=== PATIENT | female | born 1935 ===

== ENCOUNTER 2016-03-11 14:15 | Inpatient (IN) | payer MEDICARE, OTHER ==
[~2016-03-11] VITALS: Ht 167.6 cm; Wt 73.7 kg
--- NOTE | ~2016-03-11 | DS ---
PATIENT'S NAME: MANJULA BRADLEY [facility] AGE: 80 Y [address] ROOM: [id number] [place], [place] [address] LOCATION: GPCU ADMIT DATE: 03/11/2016 Discharge Summary DISCHARGE DATE: 03/13/2016 FAMILY PHYSICIAN: Erik Mcmahon MD ATTENDING PHYSICIAN: Shmuel Adhikari PRINCIPAL DIAGNOSES: 1. Paroxysmal atrial fibrillation. 2. Hypertension. 3. History of coronary artery disease. 4. History of transient ischemic attack. HOSPITAL COURSE: An 80-year-old lady with a past medical history of paroxysmal atrial fibrillation, who was on sotalol in the past, presented to the emergency department with sensation of palpitations, which have been going on for over 1 week. She was found to be in atrial flutter with rapid ventricular rate. She was started on Cardizem drip for the rate control. She was started on IV amiodarone in order to achieve chemical cardioversion, which did happen in this hospitalization. Cardiology was consulted. Rest of the hospitalization was unremarkable. DISCHARGE MEDICATIONS: Include, 1. Ramipril 10 mg p.o. twice daily. 2. Amiodarone 200 mg p.o. twice daily. 3. Aspirin 81 mg every day. 4. Vitamin D3, 1000 units p.o. every day. 5. Levothyroxine 50 mcg every day. 6. Claritin 10 mg p.o. every day p.r.n. 7. [place]-3 fatty acids 1000 mg p.o. twice daily. 8. Rivaroxaban 15 mg p.o. every day. 9. Metoprolol tartrate 25 mg daily at nighttime. 10. Simvastatin 40 mg p.o. at nighttime. 11. Tylenol 100 mg p.o. 3 times daily p.r.n. 12. Ultram 50 mg p.o. 4 times daily p.r.n. for pain. 13. Famotidine 20 mg p.o. every day. New medications: Amiodarone 200 mg p.o. twice daily and metoprolol tartrate 25 mg p.o. at bedtime. DISCHARGE INSTRUCTIONS: Low-sodium diet. Activity as tolerated. Follow up with Dr. Cortez in 2 weeks. On discharge, all of her lab work, hemodynamics, status post stable. I spent 35 minutes in discharge planning of this patient. PATIENT'S NAME: MANJULA BRADLEY [facility] AGE: 80 Y [address] ROOM: [place] [address] [facility] ADMIT DATE: 03/11/2016 Discharge Summary DISCHARGE DATE: 03/13/2016 FAMILY PHYSICIAN: Erik Mcmahon MD ATTENDING PHYSICIAN: Shmuel Adhikari MD MERLIN BAR/fidel /[id number] d: 03/14/16 0335 t: 03/15/16 1439, DISCHARGE SUMMARY
--- NOTE | ~2016-03-11 | ER ---
PATIENT'S NAME: MANJULA BRADLEY [facility] AGE: 80 Y [address] ROOM: [place] [address] LOCATION: GPCU ADMIT DATE: 03/11/2016 ER/Outpatient Report DISCHARGE DATE: FAMILY PHYSICIAN: Erik Mcmahon MD ATTENDING PHYSICIAN: HONORIO SR Time of Arrival: 1415 hours. Time of Evaluation: 1415 hours. CHIEF COMPLAINT: Atrial fibrillation. HISTORY OF PRESENT ILLNESS: The patient is an 80-year-old female who presents to the emergency department today with a chief complaint of atrial fibrillation. She reports she has a history of atrial fibrillation in the past. She does take Xarelto for this. She reports she just does not feel well overall. She did present to Dr. Cortez's office and saw Emma, the nurse. An EKG was performed and recommendation to come to the Emergency Department for further evaluation, and was treated. The patient noted an initial increase in her pulse rate about 5 days ago. It got a little bit better and then it just got worse today. She has had a GI bug with some diarrhea recently, has some generalized aches. She denies any fevers, does report some chills. Denies any chest pain. She has some mild shortness of breath. No nausea or vomiting. No diarrhea or constipation. Does report some diarrhea 2 times in the past 24 hours. PAST MEDICAL HISTORY: Coronary artery disease status post TIA, dyslipidemia, hypertension, mitral valve prolapse, atrial fibrillation, on long-term anticoagulation, multiple joint stiffness, gastroesophageal reflux disease, hypothyroidism, and prolapsed uterus. PAST SURGICAL HISTORY: Lap candice, appendectomy, right foot, bilateral cataracts, tumor from the back, bilateral catheter removal, left VIBHA, and PTCA with stents. FAMILY HISTORY: Heart disease and CVA. SOCIAL HISTORY: The patient has 20-pack year smoking history, quit in . Denies any alcohol or illicit drug use. ALLERGIES: PENICILLIN AND AUGMENTIN. MEDICATIONS: PATIENT'S NAME: MANJULA BRADLEY [facility] AGE: 80 Y [address] ROOM: [place] [address] LOCATION: GPCU ADMIT DATE: 03/11/2016 ER/Outpatient Report DISCHARGE DATE: FAMILY PHYSICIAN: Erik Mcmahon MD ATTENDING PHYSICIAN: HONORIO SR Please see list. MILL RECORDER: Abdelrahman Cortez MD REVIEW OF SYSTEMS: All systems are reviewed by myself and are negative with the exception of those discussed in HPI and past medical history. PHYSICAL EXAMINATION: VITAL SIGNS: Weight 73.7 kg, blood pressure 171/90, pulse 152, respiratory rate 20, temperature 97.3, and oxygen saturation 98% on room air. GENERAL: The patient is an 80-year-old female who appears younger than stated age in no acute distress. HEENT: Normocephalic and atraumatic. Pupils are equal, round, reactive to light and accommodation. Extraocular muscles appear intact. NECK: Supple. There is no nuchal rigidity. No JVD. CARDIOVASCULAR: Irregularly irregular. Tachycardic. LUNGS: Clear to auscultation bilaterally. No wheezes, rales, or rhonchi. ABDOMEN: Soft, nontender, and nondistended. No rebound, rigidity, or guarding. MUSCULOSKELETAL: The patient moves all 4 extremities. SKIN: Warm and dry. There are no rashes or lesions noted. LABORATORY DATA AND X-RAYS: EKG is obtained. It does show atrial fib/flutter, RVR rate of 153, normal axis. QRS of 129, otherwise normal intervals. No ST elevation, no significant change except for atrial fibrillation on 08/18/2015. CBC is normal. CMP is normal except for potassium of 3.5. LFTs normal. Magnesium is normal. Free T4 is 1.3. TSH is 0.532. Electrolytes are normal. Cardiac enzymes are normal. LABORATORY DATA: One-view chest x-ray was obtained, is interpreted by myself shows no cardiopulmonary process. IMPRESSION: 1. Atrial fibrillation with rapid ventricular response. 2. Initial visit. EMERGENCY DEPARTMENT COURSE: The patient was brought back to the examination room. Seen and evaluated by myself. An IV is established. Laboratory analysis and imaging were obtained as described above. The patient was given 15 mg of Cardizem, started on 5 mg/hour Cardizem drip. This does improve her rate. She is obviously PATIENT'S NAME: MANJULA BRADLEY [facility] AGE: 80 Y [address] ROOM: [place] [address] LOCATION: [facility] ADMIT DATE: 03/11/2016 ER/Outpatient Report DISCHARGE DATE: FAMILY PHYSICIAN: Erik Mcmahon MD ATTENDING PHYSICIAN: HONORIO SR irregular on the contracting support specialist. However, the patient's rate does in fact increase to back to the 148-150 range. She was then given another 15 mg of Cardizem with improvement of her heart rate right around 90s-110s. I discussed the results with the patient. I have contacted Dr. Cortez, the patient's cheese cutter. He does recommend admission to the hospital for further evaluation, treatment, and management with request for initial Hospitalist Service. The patient is agreeable with the plan. I have contacted Dr. Sr with the Hospitalist Service. He does agree to accept the patient for further evaluation, treatment, and management. The patient's heart rate is 90s-100s once again. DISPOSITION: The patient is admitted to the care of the Hospitalist Service in consultation with Dr. Cortez, Cardiology, in stable condition. DO JOHNY QUIROGA/modl /[id number] d: 03/11/162128 t: 03/12/16 0740, OUTPATIENT REPORT
--- NOTE | ~2016-03-11 | HP ---
PATIENT'S NAME: MANJULA BRADLEY [facility] AGE: 80 Y [address] ROOM: [place] [address] [facility] ADMIT DATE: 03/11/2016 History & Physical DISCHARGE DATE: FAMILY PHYSICIAN: Erik Mcmahon MD ATTENDING PHYSICIAN: HONORIO SR DATE OF SERVICE: CHIEF COMPLAINT: Palpitation. HISTORY OF PRESENT ILLNESS: An 80-year-old lady with a past medical history of coronary artery disease with stenting done back in 2007, history of atrial flutter/atrial fibrillation, was on sotalol in the past, presented to the emergency department today with sensation of palpitations, which have been going on for over a week. Initially, she thought that she had flu and that was the reason, but it became worse today and she presented to the emergency department. She denied any chest pain, any chest tightness, any chest pressure, any shortness of breath, or any palpitations. She did endorse having headache and dizziness. She denied having any urinary symptoms, any constipation, any diarrhea, any dysuria, any orthopnea, PND, or leg swelling. REVIEW OF SYSTEMS: All other systems reviewed and were negative except what is mentioned in the HPI. PAST MEDICAL HISTORY: 1. History of coronary artery disease, status post stenting. 2. Atrial flutter with controlled ventricular rate, on sotalol in the past. 3. Hypertension. 4. History of TIA. 5. Arthritis. MEDICATIONS: Please see MAR. ALLERGIES: THE PATIENT IS ALLERGIC TO PENICILLIN AND ERYTHROMYCIN. SOCIAL HISTORY: The patient quit smoking in 1989. She smoked 1 pack per day for 20 years. Occasional alcohol use. FAMILY HISTORY: Strongly positive for coronary artery disease in mother and all her sisters. There is no history of cancer running in the family. PATIENT'S NAME: MANJULA BRADLEY [facility] AGE: 80 Y [address] ROOM: [address] [address] LOCATION: GPCU ADMIT DATE: 03/11/2016 History & Physical DISCHARGE DATE: FAMILY PHYSICIAN: Erik Mcmahon MD ATTENDING PHYSICIAN: HONORIO SR PHYSICAL EXAMINATION: VITAL SIGNS: Blood pressure 145/67, heart rate in the 120s, respiratory rate 16, and afebrile. GENERAL: No acute distress. Alert, oriented x3. HEENT: Head: Atraumatic, normocephalic. Eyes: Nonicteric. No pallor. Oropharynx, moist mucous membranes. NECK: No thyromegaly or lymphadenopathy. CARDIOVASCULAR: Irregular. S1, S2. No murmur or gallops. LUNGS: Clear to auscultation bilaterally. ABDOMEN: Soft, nontender, nondistended. Bowel sounds are present. EXTREMITIES: No clubbing, cyanosis, or edema. PSYCH: Normal affect, mood, and speech. MUSCULOSKELETAL: Arthritic changes noted. SKIN: No bruises or blemishes. LABORATORY DATA: EKG done in the emergency department showed A. flutter with RVR. Chest x-ray was unremarkable for any acute intrathoracic changes. Other lab work including TSH, CBC, and a BMP was unremarkable. Potassium was on the lower side with a value of 3.6, which will be replaced tonight. ASSESSMENT AND PLAN: 1. Atrial flutter with rapid ventricular response. 2. History of coronary artery disease. 3. Hypertension. 4. Arthritis. We are going to admit this patient to inpatient. She is going to be started on Cardizem drip for rate control at this point. Cardiology has been consulted. She will be started on amiodarone drip. She is already on Xarelto and therapeutically anticoagulated. We will observe her overnight and see if she reverse back to normal sinus rhythm. Further decision for cardioversion will be based on her hospital course. She had a DVT prophylaxis with therapeutic dose of Xarelto already. We will follow this patient. She is full code. MD MERLIN BAR/fidel PATIENT'S NAME: MANJULA BRADLEY [facility] AGE: 80 Y [address] ROOM: [id number] [place] [id number] LOC[facility]: [facility] ADMIT DATE: 03/11/2016 History & Physical DISCHARGE DATE: FAMILY PHYSICIAN: Erik Mcmahon MD ATTENDING PHYSICIAN: HONORIO SR /[id number] D: [id number] T: [id number] HISTORY & PHYSICAL
--- NOTE | ~2016-03-11 | CON ---
PATIENT'S NAME: MANJULA BRADLEY [facility] AGE: 80 Y [address] ROOM: [place] [address] LOCATION: [facility] ADMIT DATE: 03/11/2016 Consultation DISCHARGE DATE: FAMILY PHYSICIAN: Erik Mcmahon MD ATTENDING PHYSICIAN: HONORIO SR REFERRING PHYSICIAN: Abdelrahman Kraft MD REASON FOR ADMISSION: Atrial fibrillation with rapid ventricular response. HISTORY OF PRESENT ILLNESS: This is an 80-year-old female, well known to Dr. Kraft, with a history of paroxysmal atrial fibrillation. She reports that she has had the flu and diarrhea for the past week or so and has noticed that her heart rate has been a little bit faster. She thought it was mostly related to the flu until she started getting better and then noticed that her heart rate remained tachycardic, so she presented to the clinic today and had an EKG showing atrial fibrillation with rates in the 170s. She states that she had a little bit of shortness of breath with the tachycardia, and the first day that she was feeling achy, she had some shoulder discomfort, but has not had anything since about 5 days ago. She denies orthopnea or PND. She denies shortness of breath now. She denies exertional chest pain. She does complain of some lightheadedness, but has not had any presyncope or syncopal episodes. PAST MEDICAL HISTORY: 1. Coronary artery disease, post PTCI and stent to LAD and OM as well as LCX on 02/04/2009. 2. Paroxysmal atrial fibrillation. 3. Long-term anticoagulation-Xarelto. 4. Essential hypertension. 5. Hyperlipidemia. 6. Mitral valve regurgitation 2+ with a normal ejection fraction per echocardiogram in 07/2015. 7. History of mitral valve prolapse. 8. Obstructive sleep apnea, not using CPAP. 9. Hypothyroidism. 10. History of TIA in 1999. 11. Former tobacco use. 12. Osteopenia. 13. History of pericarditis. PAST SURGICAL HISTORY: 1. Breast biopsy in 1989. 2. Lipoma removed from the right back on 08/13/1999. 3. Tumor on her foot removed in 2000. 4. Ruptured appendix with appendectomy and readmission for abscess with PATIENT'S NAME: MANJULA BRADLEY [facility] AGE: 80 Y [address] ROOM: [address] [address] LOCATION: GPCU ADMIT DATE: 03/11/2016 Consultation DISCHARGE DATE: FAMILY PHYSICIAN: Erik Mcmahon MD ATTENDING PHYSICIAN: HONORIO SR drain placement on 06/01/2003. 5. Bilateral de Quervain releases in 2003. 6. Colonoscopy in 2005. 7. Left heart catheterization with PTCI and stent to LAD, OM, and LCX on 02/04/2009. 8. Right total hip arthroplasty on 06/02/2010. 9. Synchronized cardioversion on 03/28/2013. 10. Cholecystectomy. 11. Hysterectomy with pubovaginal sling and cystourethroscopy on 11/28/2014. ALLERGIES: 1. PENICILLIN CAUSES HIVES. 2. NIZATIDINE CAUSES A RASH. 3. ERYTHROMYCIN, GI UPSET. 4. AUGMENTIN, DIARRHEA. 5. MULTAQ, SEVERE DIARRHEA. 6. SOTALOL, SEVERE DIARRHEA. CURRENT MEDICATIONS: 1. Altace 10 mg p.o. b.i.d. 2. Claritin 10 mg once a day. 3. Zocor 20 mg daily. 4. [place]-3 at 1000 mg p.o. one capsule b.i.d. 5. Synthroid 25 mcg 2 tablets daily. 6. Tylenol Extra Strength 500 mg one tablet as needed every 6 hours. 7. Ultram 50 mg one tablet every 6 hours as needed. 8. Vitamin D3 a 1000 units one capsule once a day. 9. Xarelto 15 mg p.o. every day. FAMILY HISTORY: Father at the age of 79. Mother had heart problems, she is . She has a sister with heart disease and atrial fibrillation. SOCIAL HISTORY: She is . She has 3 boys. She used to smoke a pack of cigarettes a day for 10 years, she quit in 1989. She does not use alcohol. REVIEW OF SYSTEMS: GENERAL: She has been feeling weak and tired. HEAD: She denies complaints of headaches. EYES: She does wear corrective lenses. EARS: No problems with hearing. NOSE: No epistaxis or rhinorrhea. MOUTH: No gingival bleeding. THROAT: Denies sore throat, hoarseness, or difficulty swallowing. PATIENT'S NAME: MANJULA BRADLEY [facility] AGE: 80 Y [address] ROOM: [address] [place], [place] [address] LOCATION: [facility] ADMIT DATE: 03/11/2016 Consultation DISCHARGE DATE: FAMILY PHYSICIAN: Erik Mcmahon MD ATTENDING PHYSICIAN: HONORIO SR PULMONARY: No cough, hemoptysis, or sputum production. GASTROINTESTINAL: Positive for recent episodes of diarrhea. No melena or hematochezia were noted. No history of GI bleed. GENITOURINARY: Negative for urinary frequency or urgency. ENDOCRINE: She does have a history of hypothyroidism. NEUROLOGIC: She denies anxiety. She has a history of TIA/CVA in the past. DERMATOLOGIC: She denies hair, skin, or nail changes that are concerning. HEMATOLOGIC: No anemia or history of cancer. MUSCULOSKELETAL: She does have arthritic changes. PHYSICAL EXAMINATION: VITAL SIGNS: Her heart rate is 123 now, it had been 170; blood pressures are 171/90 to 123/68. GENERAL: She is alert and oriented. Her face is flush. HEENT: Pupils are equal. They do react briskly. Oral mucosa is pink and moist. NECK: Soft and supple. No lymphadenopathy or thyromegaly. CARDIOVASCULAR: Regularly irregular. Tachycardic, with an apical murmur noted. ABDOMEN: Soft. Bowel sounds are present. EXTREMITIES: No peripheral edema. No clubbing. No cyanosis. LABORATORY DATA: Troponin-I is 0.040. TSH 0.532. CPK 76. Free T4 is 1.3. White count 10.8 and hemoglobin 13.7. BUN is 15, creatinine 1.0, sodium 141, potassium is 3.5, and glucose is 109. ASSESSMENT: 1. Paroxysmal atrial fibrillation now with rapid ventricular response. I did discuss with Dr. Kraft. We are going to initiate amiodarone therapy given the fact that she has had severe side effects from several of the other antiarrhythmic medications. She is currently on a Cardizem infusion. We will titrate that to keep her heart rates less than 100, and she will also continue Xarelto. 2. Hypothyroid. Her TSH today was okay. 3. History of diarrhea. She is being admitted to the hospitalist, we will have them follow along. This patient has been seen and assessed.The assessment and plan, history of present illness and physical exam are per Dr. Kraft. We would like to thank Dr. Broderick Bejarano and Dr. Erik Mcmahon for allowing us to participate in the patient's care. KELSEY BARTON APRN FOR ABDELRAHMAN KRAFT MD PATIENT'S NAME: MANJULA BRADLEY [facility] AGE: 80 Y [address] ROOM: [place] [address] LOCATION: [facility] ADMIT DATE: 03/11/2016 Consultation DISCHARGE DATE: FAMILY PHYSICIAN: Erik Mcmahon MD ATTENDING PHYSICIAN: HONORIO SR/fidel /[id number] d: 03/12/16 1201 t: 03/20/16 1236, CONSULTATION REPORT
[~2016-03-11 14:15] MED LIST: ALTACE10 MG PO; ALTACE2.5 MG PO; ASPIRIN LO-DOSE81 MG PO; ATORVASTATIN CA20 MG PO; CALCIUM CARBON600 MG PO; CLARITIN10 MG PO; CORDARONE,PACE200 MG PO; COUMADIN **IA2.5 MG PO; FISH OIL1000 MG PO; LEVAQUIN 250 M250 MG PO; LEVOTHROID (SY50 MCG PO; NORCO 5-325 MG1 TAB PO; PEPCID20 MG PO; SOTALOL80 MG PO; SYNTHROID25 MCG PO; TYLENOL EXTRA500 MG PO; ULTRAM50 MG PO; VERAPAMIL ER120 M1 PO; VITAMIN D1000 UNIT PO; XARELTO15 MG PO
[2016-03-11 14:43] LABS: BASOPHIL % 0.4 %; EOSINOPHIL % 0.3 %; HEMATOCRIT 43.1 % (30.0-46.0); HEMOGLOBIN 13.7 g/dL (10.0-15.0); IMMATURE GRANULOCYTE % 0.3 %; LYMPHOCYTE # 3.5 K/uL (0.8-4.0); LYMPHOCYTE % 32.7 %; MCHC 31.8 gm/dL (32.0-36.5); MCV 94.5 fl (83.0-98.0); MONOCYTE # 0.7 K/uL (0.0-1.0); MONOCYTE % 6.2 %; MPV 10.1 fl (9.4-12.4); NEUTROPHIL # (ANC) 6.5 K/uL (1.8-7.8); NEUTROPHIL % 60.1 %; NRBC % 0 /100WBC (0-0.00); PLATELET COUNT 303 K/uL (150-450); RBC 4.56 M/uL (3.00-5.00); RDW-CV 12.2 % (11.9-14.6); WBC 10.8 K/uL (4.0-11.0)
[2016-03-11 14:50] LABS: PROTIME 10.4 SECONDS (9.6-11.1); PTT 26 SECONDS (25-32)
[2016-03-11 15:02] LABS: ALBUMIN 4.1 gm/dL (3.5-5.0); ALK PHOS 68 IU/L (33-138); ALT 21 IU/L (12-78); ANION GAP 14.5 (10.0-19.0); AST 14 IU/L (10-40); BLOOD UREA NITROGEN 15 mg/dL (6-24); CHLORIDE 106 mMol/L (96-110); CO2 24 mMol/L (22-32); CPK 76 IU/L (21-215); ESTIMATED GFR (MDRD EQUATION) 53; MAGNESIUM 2.1 mg/dL (1.3-2.6); POTASSIUM 3.5 mMol/L (3.7-5.1); SODIUM 141 mMol/L (135-145); TOTAL BILIRUBIN 0.5 mg/dL (0.0-1.5); TOTAL PROTEIN 7.9 g/dL (6.0-8.4)
--- NOTE | 2016-03-11 17:19 | NUR ---
Pt is 80 y/o female admit for afib w rvr for . Pt alert and oriented x3. Allergies to Augmentin,Pcn,lactose,Sotalol and related meds. Pt resides at home alone. States she hasn't felt well since last Wednesday. She woke up with her heart pounding and then had diarrhea-which lasted all week. She states diarrhea just stopped recently. She also monitored her BP and pulse at home. BP has been normal,pulse was in 150's. She also felt dizzy. Hx afib,cardioversion,stents x2,TIA,allergies,hypercholest,htn,MVP,murmur, hypothyroid.
[2016-03-11] MEDS ORDERED: PEPCID AC20 MG PO (19:07)
[2016-03-11] MEDS ORDERED: NORVASC2.5 MG PO (19:11)
[2016-03-11] MEDS ORDERED: PRAVACHOL40 MG PO (19:11)
[2016-03-11] MEDS ORDERED: CLARITIN10 MG PO (19:12)
[2016-03-12 03:35] LABS: BASOPHIL # 0.1 K/uL (0.0-0.2); BASOPHIL % 0.7 %; EOSINOPHIL # 0.1 K/uL (0.0-0.5); EOSINOPHIL % 1.7 %; HEMATOCRIT 36.6 % (30.0-46.0); HEMOGLOBIN 11.6 g/dL (10.0-15.0); IMMATURE GRANULOCYTE % 0.3 %; LYMPHOCYTE # 2.3 K/uL (0.8-4.0); LYMPHOCYTE % 32.4 %; MCH 30.5 pg (27.0-34.0); MCHC 31.7 gm/dL (32.0-36.5); MCV 96.3 fl (83.0-98.0); MONOCYTE # 0.6 K/uL (0.0-1.0); MONOCYTE % 8.5 %; MPV 9.8 fl (9.4-12.4); NEUTROPHIL # (ANC) 3.9 K/uL (1.8-7.8); NEUTROPHIL % 56.4 %; NRBC % 0 /100WBC (0-0.00); PLATELET COUNT 254 K/uL (150-450); RDW-CV 12.3 % (11.9-14.6)
[2016-03-12 03:47] LABS: ANION GAP 13.2 (10.0-19.0); BLOOD UREA NITROGEN 13 mg/dL (6-24); CALCIUM 8.5 mg/dL (8.5-10.5); CHLORIDE 113 mMol/L (96-110); CO2 24 mMol/L (22-32); CREATININE 0.8 mg/dL (0.5-1.1); ESTIMATED GFR (MDRD EQUATION) > 60; POTASSIUM 4.2 mMol/L (3.7-5.1)
[2016-03-12 03:48] LABS: SODIUM 146 mMol/L (135-145)
--- NOTE | 2016-03-12 04:43 | NUR ---
Significant Event: Patient denies pain through night. Cardizem titrated for Rates, was actually turned off and Dr Mejia Notified DT rates of 60's and SBP of high 90's and low 100's. Cardizem restarted after patient up to bathroom and rates never returned to below 80 rates. Currently running at 5mg per hour. Amio running at 0.5mg for 18 hours per order. Patient has pneumatics on DT elevated VTE score. NPO since midnight. Patient very pleasant and cooperative with cares. Follow up: continue to monitor per MD order.
--- NOTE | 2016-03-12 11:20 | NUR ---
NUTRITION CONSULT RECEIVED TO REMOVE FOOD ALLERGIES; PT IS NOT ALLERGIC TO ANY FOOD.
--- NOTE | 2016-03-12 14:50 | NUR ---
Introduced self and role of care management to patient. She lives in [place] by herself. She states that she is able to do all her own ADL's independently. She states that she has family in [place] that can assist if needed. She plans on returning home on discharge. She denies any needs at this time. Will continue to follow.
--- NOTE | 2016-03-12 17:04 | NUR ---
Significant Event: A/OX3, VSS ON RA. GAVE ULTRAM X2 LAST AT 1536, TYLENOL X1 LAST AT 1058 FOR COMPLAINTS OF PAIN. PT. GETS UP SELF IN ROOM, UP IN CHAIR MOST OF THE DAY. AMIODARONE DRIP RUNNING @ 0.5MG/MIN., WILL BE TURNED OFF WHEN CURRENT BAG IS DONE, PT. STARTING ON 200MG PO STARTING @ 2100. LOPRESSOR 25MG PO BID STARTED TODAY. PT. IS NPO AFTER MIDNIGHT FOR POSSIBLE CARDIOVERSION TOMORROW, DR. DUMONT WILL DECIDE IN AM WILL DEPEND IF IN AFIB/FLUTTER RHYTHM. COOPERATIVE WITH CARES. IV TO R)FA. Follow up: CONTINUE WITH POC.
[2016-03-13 04:04] LABS: BASOPHIL % 0.4 %; EOSINOPHIL # 0.1 K/uL (0.0-0.5); EOSINOPHIL % 1.5 %; HEMATOCRIT 35.4 % (30.0-46.0); HEMOGLOBIN 10.9 g/dL (10.0-15.0); IMMATURE GRANULOCYTE % 0.1 %; LYMPHOCYTE # 3.4 K/uL (0.8-4.0); LYMPHOCYTE % 37.4 %; MCHC 30.8 gm/dL (32.0-36.5); MCV 97.5 fl (83.0-98.0); MONOCYTE # 0.7 K/uL (0.0-1.0); MONOCYTE % 7.9 %; NEUTROPHIL # (ANC) 4.9 K/uL (1.8-7.8); NEUTROPHIL % 52.7 %; NRBC % 0 /100WBC (0-0.00); PLATELET COUNT 267 K/uL (150-450); RBC 3.63 M/uL (3.00-5.00); RDW-CV 12.5 % (11.9-14.6); WBC 9.2 K/uL (4.0-11.0)
--- NOTE | 2016-03-13 04:05 | NUR ---
Pt a/o x4. up adlib. converted to SB in the 50's at ~2100. VSS on RA, afebrile. SL RFA. plan: hopefully d/c
[2016-03-13 04:15] LABS: CALCIUM 8.5 mg/dL (8.5-10.5); CREATININE 1.2 mg/dL (0.5-1.1)
[2016-03-13] MEDS ORDERED: CORDARONE,PACE200 MG PO (10:49)
[2016-03-13] MEDS ORDERED: LOPRESSOR25 MG PO (10:54)
--- NOTE | 2016-03-13 13:12 | NUR ---
PATIENT A/OX3, VSS ON RA. PT. CHANGED INTO NSR @ 2100 LAST EVENING. PT. GETS SELF IN ROOM, VOIDS FINE, MODERATE BMX2. GAVE ULTRAM & TYLENOL @ 0923 FOR COMPLAINTS OF GENERALIZED PAIN. DISMISSAL INSTRUCTIONS, NEW MEDICATIONS & F/U APTS GONE OVER WITH PATIENT, PT. VERBALIZES UNDERSTANDING, NO FURTHER QUESTIONS. ALL BELONGINGS SENT HOME WITH PATIENT. SON PICKED HER UP AT THE [facility].
== END 2016-03-13 12:55 | disposition disaster alternative care site (69) | DRG 310 ==
LOC: GMED 14:15 → GPCU 16:50
PROVIDERS: Emergency Medicine; Internal Medicine; ADMIT Internal Medicine
DX: I48.0 Paroxysmal atrial fibrillation (principal); I47.2 Ventricular tachycardia; I25.10 Atherosclerotic heart disease of native coronary artery without angina pectoris; I48.92 Unspecified atrial flutter; Z79.01 Long term (current) use of anticoagulants; M19.90 Unspecified osteoarthritis, unspecified site; Z86.73 Personal history of transient ischemic attack (TIA), and cerebral infarction without residual deficits; Z87.891 Personal history of nicotine dependence; Z79.82 Long term (current) use of aspirin; G47.33 Obstructive sleep apnea (adult) (pediatric); E03.9 Hypothyroidism, unspecified
CPT/HCPCS: J0282; J7030; J7040; J7050; J7060

== ENCOUNTER 2016-07-31 14:30 | Inpatient (IN) | payer MEDICARE, OTHER ==
[~2016-07-31] VITALS: Ht 162.6 cm; Wt 75.4 kg
--- NOTE | ~2016-07-31 | DS ---
PATIENT'S NAME: MANJULA BRADLEY [facility] AGE: 81 Y [address] ROOM: [address] [place] [address] LOCATION: GPCU ADMIT DATE: 07/31/2016 Discharge Summary DISCHARGE DATE: 08/03/2016 FAMILY PHYSICIAN: Erik Mcmahon MD ATTENDING PHYSICIAN: Tahmina Childers PRIMARY DIAGNOSES: 1. Paroxysmal atrial fibrillation with rapid ventricular response. 2. Essential hypertension. 3. Acute hypoxic respiratory failure. 4. Coronary artery disease. PRINCIPAL PROCEDURE: Done for the patient includes DC cardioversion x1 by Dr. Cortez. LABORATORY DATA: WBC on admission was 9.8, was stable throughout the hospital stay, prior to discharge was 7.6; H and H on admission were 13.5 and 42.8, prior to discharge was 12.8 and 38.4; platelet was also stable throughout the hospital stay. On admission, creatinine was 1.2, prior to discharge was 1.0; sodium was also stable throughout the hospital stay, at 142 upon discharge; potassium also was stable throughout the hospital stay. MICROBIOLOGY DATA: None was indicated. RADIOLOGY DATA: Chest x-ray on admission, negative. No acute findings. Repeat chest x-ray the next hospital stay was stable, nonacute chest. Echocardiogram, none. HOSPITAL COURSE: For history of present illness, please take a look at the H and P, which was done by Dr. Childers. The patient was admitted to Progressive Care Unit. She had a Cardiology consult for paroxysmal atrial fibrillation with rapid ventricular response. The patient was started on amiodarone drip and was kept n.p.o. Cardiology recommended 2D DC cardioversion the next day of the hospital stay. On the next day of the hospital stay, she had a failed DC cardioversion done, but still remained in atrial fibrillation. Following the cardioversion, the patient was continued on her anticoagulation with Xarelto, and following the failed cardioversion, she was also put on Cardizem, so she was on amiodarone drip as well as Cardizem drip, and plan was to repeat DC cardioversion the next day of the hospital stay, which was the second day. However, just prior to taking the patient down for repeat DC cardioversion, she converted back to normal sinus rhythm at around 10:00 a.m. on August 03, 2016, and she remained in sinus rhythm up until discharge. Upon discharge, vital signs were stable. Also by the next day of the hospital stay, the patient also developed acute hypoxic respiratory failure of unknown etiology. She required 5 L of nasal cannula. PATIENT'S NAME: MANJULA BRADLEY [facility] AGE: 81 Y [address] ROOM: [place] [address] LOCATION: GPCU ADMIT DATE: 07/31/2016 Discharge Summary DISCHARGE DATE: 08/03/2016 FAMILY PHYSICIAN: Erik Mcmahon MD ATTENDING PHYSICIAN: Tahmina Childers Her repeat chest x-ray, which was done essentially was unchanged. However, she was successfully weaned off oxygen to room air, and she remained stable thereafter. Vital signs upon discharge were stable, and the patient was discharged home. DISCHARGE INSTRUCTIONS: The patient is to follow up with her PCP in the next 4 to 5 days, and with Dr. Cortez in the next 2 weeks. MEDICATIONS ON DISCHARGE: 1. Vitamin D3 1000 units p.o. daily. 2. Amiodarone 200 mg p.o. twice daily. 3. Norvasc 2.5 mg p.o. daily. 4. Aspirin 81 mg p.o. daily. 5. Hydrocortisone cream to back rash topically twice daily. 6. Synthroid 50 mcg p.o. daily. 7. Claritin 10 mg p.o. daily p.r.n. 8. Pravachol 40 mg p.o. q.h.s. 9. Lisinopril 20 mg p.o. twice daily, new medication. 10. Neomycin to back rash. 11. Xarelto 15 mg p.o. daily. 12. Tramadol 50 mg p.o. 4 times daily. 13. Tylenol tablet Extra Strength 1 g p.o. 3 times daily. 14. [place] fatty acid 1 g p.o. twice daily. 15. Pepcid 20 mg p.o. daily p.r.n. MD JALEN FARRELL/vinodl /[id number] d: 08/04/16 0136 t: 08/09/16 1253, DISCHARGE SUMMARY
--- NOTE | ~2016-07-31 | HP ---
PATIENT'S NAME: MANJULA BRADLEY [facility] AGE: 81 Y [address] ROOM: [address] [address] LOCATION: GPCU ADMIT DATE: 07/31/2016 History & Physical DISCHARGE DATE: FAMILY PHYSICIAN: Erik Mcmahon MD ATTENDING PHYSICIAN: CRISTINE BIRD DATE OF SERVICE: CHIEF COMPLAINT: Atrial fibrillation with RVR. HISTORY OF PRESENT ILLNESS: This is an 81-year-old female, with a known history of paroxysmal atrial fibrillation, on long-term anticoagulation with Xarelto; hypothyroidism; coronary artery disease; mitral regurg; obstructive sleep apnea, who presents here with complaints of palpitation for the past 2-3 days. The patient reports that she did feel her heart racing since Wednesday and contacted Dr. Cortez's office and tried to uptitrate her amiodarone which did not work and continued to have palpitations and generalized weakness and fatigue and decided to come to the emergency room. The patient indeed was found to be in atrial fibrillation with rates in the 130 and up. The patient otherwise denied any chest pain, discomfort, dizziness, or lightheadedness. Denies any GI symptoms nausea, vomiting, diarrhea, constipation, or fevers. Denies any other complaint as well. Although she has a diminished appetite, she has been hydrating very well. PAST MEDICAL HISTORY: Paroxysmal atrial fibrillation, coronary artery disease, hypertension, and history of TIA. MEDICATIONS: Per MAR. SOCIAL HISTORY: Remote history of smoking, but had quit. Occasional alcohol use. FAMILY HISTORY: The patient has significant history of coronary artery disease in the mother and her siblings. REVIEW OF SYSTEMS: All systems have been reviewed and are negative except as described in the HPI. PHYSICAL EXAMINATION: PATIENT'S NAME: MANJULA BRADLEY [facility] AGE: 81 Y [address] ROOM: [address] [address] LOCATION: GPCU ADMIT DATE: 07/31/2016 History & Physical DISCHARGE DATE: FAMILY PHYSICIAN: Erik Mcmahon MD ATTENDING PHYSICIAN: CRISTINE BIRD VITAL SIGNS: Blood pressure 118/82, heart rate regular between 120 and 130, saturating 94% on 2 L of oxygen per nasal cannula. GENERAL: The patient is awake, alert, and oriented x3, in no acute distress. HEART: S1, S2 regular. CHEST: Clear to auscultation bilaterally. ABDOMEN: Soft, nontender, and nondistended. Positive bowel sounds. MUSCULOSKELETAL: No joint effusions, swelling, or erythema noted. SKIN: Without rash or lesions. NEURO: Grossly nonfocal. ASSESSMENT AND PLAN: 1. Atrial fibrillation with rapid ventricular response. The patient is presenting with complaints of palpitations. The patient had been started on diltiazem drip in the ED and will continue this. Dr. Cortez from Cardiology following closely and the patient is very well known to him. EKG and troponins were negative. 2. Hypertension. The patient is on Norvasc at home and we will continue this. 3. Hyperlipidemia. We will continue her statin therapy. 4. Long-term anticoagulation with Xarelto and we will continue this. 5. Hypothyroidism. We will continue home thyroid replacement therapy. 6. Deep venous thrombosis prophylaxis. We will continue Xarelto. MD DARRELL COSTA/modkelsey /[id number] D: 243 T: [id number] HISTORY & PHYSICAL
--- NOTE | ~2016-07-31 | CON ---
PATIENT'S NAME: MANJULA BRADLEY [facility] AGE: 81 Y [address] ROOM: [place] [address] LOCATION: GPCU ADMIT DATE: 07/31/2016 Consultation DISCHARGE DATE: FAMILY PHYSICIAN: Erik Mcmahon MD ATTENDING PHYSICIAN: CRISTINE CHILDERS REFERRING PHYSICIAN: Cristine Childers MD HISTORY OF PRESENT ILLNESS: This is an 81-year-old female, who presented to the emergency room with atrial fibrillation with rapid ventricular response. On Wednesday, she noted that she went out of rhythm and she increased the amiodarone full tablet in the morning and 1/2 tablet at night. Her heart continued to race, therefore she presented to the ER for further evaluation on 07/31/2016. She was complaining of some dizziness. She does complain of increased fatigue and some shortness of breath while she is in atrial fibrillation. She has not had any problems with orthopnea or PND. She denies any increase in peripheral edema. She complains of left shoulder discomfort and some mild heaviness when her heart is racing really fast. Upon arrival to the emergency room, she was found to be in atrial fibrillation with rapid ventricular response in the 130 to 140 range. She was initiated on Cardizem infusion and after the bolus, she did drop her blood pressures into the 70s. The infusion was stopped and restarted again once her blood pressure came back up. She has been on Xarelto therapy and has taken her medications faithfully. PAST MEDICAL HISTORY: 1. Coronary artery disease with stent to the OM and LAD as well as left circumflex. 2. Paroxysmal atrial fibrillation. 3. High-risk medication - amiodarone. 4. Long-term anticoagulation - Xarelto. 5. Essential hypertension. 6. Hyperlipidemia. 7. 2+ mitral valve regurgitation. 8. Mitral valve prolapse. 9. Obstructive sleep apnea, not using CPAP. 10. Hypothyroidism. 11. History of TIA in 1999. 12. Former tobacco user. 13. Articular cartilage. 14. Osteopenia. 15. History of pericarditis. 16. Urinary tract infection. PAST SURGICAL HISTORY: 1. Breast biopsy in 1989. 2. Lipoma removed from the right back on 08/13/1999. PATIENT'S NAME: MANJULA BRADLEY [facility] AGE: 81 Y [address] ROOM: [address] [place] [address] LOCATION: GPCU ADMIT DATE: 07/31/2016 Consultation DISCHARGE DATE: FAMILY PHYSICIAN: Erik Mcmahon MD ATTENDING PHYSICIAN: CRISTINE CHILDERS 3. Tumor on her back and foot, removed in 2000. 4. Ruptured appendix with appendectomy and readmission for abscess with drain placement on 06/01/2003. 5. Bilateral De Quervain release in 2003. 6. Colonoscopy in 2005. 7. Left heart catheterization with PTCI stent to the LAD, OM, and LCX on 02/04/2009. 8. Total right hip arthroplasty on 06/02/2010. 9. Synchronized cardioversion on 03/28/2013. 10. Cholecystectomy. 11. Hysterectomy with pubovaginal sling and cystourethroscopy on 11/28/2014. ALLERGIES: 1. PENICILLIN. 2. NIZATIDINE. 3. ERYTHROMYCIN. 4. AUGMENTIN. 5. MULTAQ GIVING HER SEVERE DIARRHEA. 6. SOTALOL CAUSING SEVERE DIARRHEA. SOCIAL HISTORY: She is a former smoker, she quit in 1989, she smoked a pack of cigarettes a day for 10 years. She has 3 boys. She is . REVIEW OF SYSTEMS: GENERAL: She is complaining of increased fatigue. She denies any fevers or chills. No weight loss. HEENT: Head: No history of headache. No vision changes. No hearing loss. No sore throat. CV: Per HPI. PULMONARY: No history of cough or hemoptysis. No sputum production. GI: Negative for nausea, vomiting, or diarrhea. No melena, hematochezia, or GI bleed. : Negative for dysuria, polyuria, or hematuria. No frequent urination, but she has had problems with urinary tract infections in the past. ENDOCRINE: She denies hypoglycemia. No hypothyroidism. NEUROLOGIC: She denies anxiety, intracranial or EPIC SPECIALIST processes. She does report dizziness at this time. DERMATOLOGIC: She denies skin rashes or lesions. HEMATOLOGIC: No history of anemia or leukemia. MUSCULOSKELETAL: No arthralgias or myalgias. PHYSICAL EXAMINATION: VITAL SIGNS: Her height is 64 inches tall. She weighs 163 with a BMI of 28. GENERAL: She is alert and oriented. PATIENT'S NAME: MANJULA BRADLEY [facility] AGE: 81 Y [address] ROOM: [place] [address] LOCATION: GPCU ADMIT DATE: 07/31/2016 Consultation DISCHARGE DATE: FAMILY PHYSICIAN: Erik Mcmahon MD ATTENDING PHYSICIAN: CRISTINE CHILDERS SKIN: Warm, dry, and pink. HEENT: Pupils equal, round, and react briskly to light. EOMs are intact. NECK: Soft and supple. No lymphadenopathy. No thyromegaly. JVD is flat. LUNGS: Lung sounds are clear. There is no evidence of wheezes, rales, or rhonchi. CV: Irregular with a normal S1 and S2 with an apical murmur noted. ABDOMEN: Soft. Bowel sounds are present. EXTREMITIES: No peripheral edema. NEUROLOGIC: She is alert and oriented. Answers questions appropriately. DERMATOLOGIC: Skin is warm, dry, and pink. PSYCHIATRIC: Mood and affect are appropriate. ASSESSMENT: 1. Paroxysmal atrial fibrillation. We will recommend that she continue with the amiodarone. We will increase it to 200 mg p.o. b.i.d. In addition, she is to continue with her Xarelto. 2. Hypertension. She will continue with her current medications. 3. Coronary artery disease. This is stable at this time. 4. Hypothyroid. We will check a TSH. The assessment and plan, history of present illness, and physical exam are per Dr. Abdelrahman Cortez. We would like to thank Dr. Childers for allowing us to participate in the patient's care. KELSEY BARTON APRN FOR MD RAINER LUIS/fidel /[id number] d: 08/01/166 t: 08/06/16 1653, CONSULTATION REPORT
--- NOTE | ~2016-07-31 | OR ---
PATIENT'S NAME: MANJULA BRADLEY [facility] AGE: 81 Y [address] ROOM: [place] [address] LOCATION: [facility] ADMIT DATE: 07/31/2016 OR/Procedure Report DISCHARGE DATE: FAMILY PHYSICIAN: Erik Mcmahon MD ATTENDING PHYSICIAN: CRISTINE BIRD SURGEON: Abdelrahman Kraft MD SLEEVER: DATE OF PROCEDURE: 08/01/2016 PRIMARY CARE DOCTOR: Dr. Mcmahon. PROCEDURE PERFORMED: DC cardioversion. INDICATION: Atrial fibrillation refractory to antiarrhythmic drug therapy. DESCRIPTION OF PROCEDURE: The patient was brought to the preoperative suite in a fasting state. Prepped and draped in normal manner. A total of 100 mg propofol was administered through the nurse zipper setter chainstitch. Subsequently 100 joules, followed by 300 joules, and ultimately 300 joules of synchronized therapy was delivered with presybeterian of sinus rhythm with PACs. CONCLUSION: 1. Successful presybeterian of normal sinus rhythm using DC cardioversion. 2. A 12-lead EKG is pending at the time of this dictation. 3. The patient will continue antiarrhythmic drug therapy as well as long- term anticoagulation. I would like to thank Dr. Mcmahon for the opportunity to participate in the care Mrs. Bradley. ABDELRAHMAN KRAFT MD DJM/modl /[id number] CC: Erik Mcmahon MD d: 08/03/16 1606 t: 08/06/16 1333, OPERATIVE SUMMARY
--- NOTE | ~2016-07-31 | ER ---
PATIENT'S NAME: MANJULA BARDLEY [facility] AGE: 81 Y [address] ROOM: [place] [address] LOCATION: GPCU ADMIT DATE: 07/31/2016 ER/Outpatient Report DISCHARGE DATE: FAMILY PHYSICIAN: Erik Mcmahon MD ATTENDING PHYSICIAN: CRISTINE CHILDERS Time of Arrival: 1430. Time Seen: 1440. IDENTIFICATION: 81-year-old female. CHIEF COMPLAINT: Rapid heartbeat. HISTORY OF PRESENT ILLNESS: The patient is an 81-year-old female with paroxysmal atrial fibrillation, who has had rapid heart beat since Wednesday. She has chest pressure and feels very dizzy and lightheaded. No shortness of breath. She is on amiodarone 100 mg daily. She increased it to 200 mg q.a.m. and 100 mg at bedtime but has continued to have a rapid heart rate. The patient did have one episode of diarrhea today. PAST MEDICAL HISTORY: ALLERGIES: PENICILLIN. CURRENT MEDICATIONS: 1. Amiodarone 100 mg q.a.m. 2. Altace 10 mg b.i.d. 3. Synthroid 50 mcg q.a.m. 4. Pravachol 40 mg q.p.m. 5. Xarelto 15 mg daily. 6. Ultram 50 mg four times daily. 7. Aspirin 81 mg daily. 8. Tylenol 500 mg 2 tablets three times a day. 9. Vitamin D 2000 international units daily. 10. Fish oil 1000 mg b.i.d. 11. Norvasc 2.5 mg at bedtime. MEDICAL PROBLEMS: Coronary artery disease, TIA, dyslipidemia, hypertension, mitral valve prolapse, atrial fibrillation; on chronic anticoagulation, osteoarthritis, gastroesophageal reflux disease, hypothyroidism, and uterine prolapse. PATIENT'S NAME: MANJULA BRADLEY [facility] AGE: 81 Y [address] ROOM: [place] [address] LOCATION: GPCU ADMIT DATE: 07/31/2016 ER/Outpatient Report DISCHARGE DATE: FAMILY PHYSICIAN: Erik Mcmahon MD ATTENDING PHYSICIAN: CRISTINE CHILDERS PRIOR SURGERIES: Laparoscopic cholecystectomy, appendectomy, right foot surgery, bilateral cataracts, right hip and PTCA with stents. FAMILY HISTORY: Positive for heart disease and CVA. SOCIAL HISTORY: The patient is , lives here in [place]. Tobacco use, denies. Alcohol use, denies. Drug use, denies. REVIEW OF SYSTEMS: All systems reviewed and negative other than what is noted in the HPI. PHYSICAL EXAMINATION: VITAL SIGNS: Height 5 feet 4 inches, weight 75.5 kg. Blood pressure 158/112, pulse 134, respirations 20, temperature 98.4, sats 96% on room air. GENERAL: An 81-year-old female, in mild distress. HEENT: Head: Normocephalic, atraumatic. Ears: TMs translucent to both ears. Eyes: Pupils equal and reactive to light and accommodation. Extraocular movements intact. Nose: Mucosa pink. No lesions or drainage. Mouth: No lesions. Pharynx benign. NECK: Supple. No lymphadenopathy. No JVD. No carotid bruits. LUNGS: Clear to auscultation. Breath sounds are equal. No rhonchi, wheezes, or rales. HEART: Irregularly irregular rhythm with tachycardia. ABDOMEN: Bowel sounds present. Soft, nondistended. No hepatosplenomegaly. No palpable masses. Nontender. SKIN: Vanduser, warm, and dry. No lesions or rashes noted. NEUROLOGIC: The patient is alert and oriented x4. Cranial nerves 2 through 12 grossly intact. Motor strength 5/5 throughout. Sensation is intact to light touch. No lower extremity edema. No calf tenderness. LABORATORY DATA: Hemoglobin 13.5, hematocrit 42.8, platelets 328, white count 9.8 with a normal differential. INR 1.02. TSH 2.070. Sodium 140, potassium 3.9, chloride 106, CO2 of 23, BUN 19, creatinine 1.2, which is stable, glucose 146. Liver enzymes normal. Magnesium 2.2. CPK 75. CK-MB 1.2. Troponin I less than 0.040. EKG; atrial fibrillation at 123 beats per minute. Diffuse ST-T wave changes. One-view chest x-ray, no acute process pending Radiology over-read. The patient was given Cardizem 15 mg IV slow with improvement of her heart rate to 90-100. Cardizem drip per protocol was initiated along with IV fluids at 75 mL/h. The patient felt much better as her heart rate came down. The PATIENT'S NAME: MANJULA BRADLEY [facility] AGE: 81 Y [address] ROOM: [place] [address] LOCATION[facility] ADMIT DATE: 07/31/2016 ER/Outpatient Report DISCHARGE DATE: FAMILY PHYSICIAN: Erik Mcmahon MD ATTENDING PHYSICIAN: CRISTINE CHILDERS patient had an episode of hypotension, blood pressure of 90. The Cardizem was discontinued and she was given 200 mL bolus of normal saline. Her blood pressure improved and then increased again to 177/110 and her heart rate went back up to the 120s. Cardizem drip was resumed and the patient's heart rate was in the 100-110s. Blood pressure remained 137/85 to 153/98. The patient was resting comfortably at that point. She was taken to PCU telemetry in stable and improved condition. IMPRESSION AND PLAN: 1. Atrial fibrillation with rapid ventricular response. 2. Lightheadedness secondary to atrial fibrillation with rapid ventricular response. 3. Chest pressure. Initial enzymes are negative. The patient will be admitted by Dr. Childers with Dr. Cortez consulting. TASNEEM MITCHELL MD CAR/fidel /[id number] d: 07/31/16 2259 t: 08/04/16 0642, OUTPATIENT REPORT
[~2016-07-31 14:30] MED LIST changes: +LOPRESSOR25 MG PO; +NORVASC2.5 MG PO; +PEPCID AC20 MG PO; +PRAVACHOL40 MG PO
[2016-07-31 15:05] LABS: BASOPHIL % 0.4 %; EOSINOPHIL % 0.3 %; HEMATOCRIT 42.8 % (30.0-46.0); HEMOGLOBIN 13.5 g/dL (10.0-15.0); IMMATURE GRANULOCYTE % 0.2 %; LYMPHOCYTE # 3.6 K/uL (0.8-4.0); LYMPHOCYTE % 36.4 %; MCH 30.5 pg (27.0-34.0); MCHC 31.5 gm/dL (32.0-36.5); MCV 96.8 fl (83.0-98.0); MONOCYTE # 0.5 K/uL (0.0-1.0); MONOCYTE % 5.5 %; MPV 10.2 fl (9.4-12.4); NEUTROPHIL # (ANC) 5.6 K/uL (1.8-7.8); NEUTROPHIL % 57.2 %; NRBC % 0 /100WBC (0-0.00); PLATELET COUNT 328 K/uL (150-450); RBC 4.42 M/uL (3.00-5.00); RDW-CV 12.7 % (11.9-14.6); WBC 9.8 K/uL (4.0-11.0)
[2016-07-31 15:10] LABS: INR - (THERAPEUTIC) 1.02 (0.92-1.07); PROTIME 10.7 SECONDS (9.8-11.4); PTT 27 SECONDS (25-32)
[2016-07-31 15:24] LABS: ALK PHOS 64 IU/L (33-138); ALT 23 IU/L (12-78); ANION GAP 14.9 (10.0-19.0); AST 20 IU/L (10-40); BLOOD UREA NITROGEN 19 mg/dL (6-24); CALCIUM 8.8 mg/dL (8.5-10.5); CHLORIDE 106 mMol/L (96-110); CO2 23 mMol/L (22-32); CPK 75 IU/L (21-215); CREATININE 1.2 mg/dL (0.5-1.1); ESTIMATED GFR (MDRD EQUATION) 43; MAGNESIUM 2.2 mg/dL (1.8-2.6); POTASSIUM 3.9 mMol/L (3.7-5.1); SODIUM 140 mMol/L (135-145); TOTAL BILIRUBIN 0.4 mg/dL (0.0-1.5); TOTAL PROTEIN 7.5 g/dL (6.0-8.4)
[2016-07-31] MEDS ORDERED: NORVASC2.5 MG PO (16:36)
[2016-07-31 17:17] LABS: CPK 70 IU/L (21-215)
[2016-07-31 23:36] LABS: CPK 69 IU/L (21-215)
[2016-08-01 05:27] LABS: CPK 72 IU/L (21-215)
[2016-08-02 04:23] LABS: BASOPHIL % 0.5 %; EOSINOPHIL # 0.1 K/uL (0.0-0.5); EOSINOPHIL % 1.6 %; HEMATOCRIT 38.4 % (30.0-46.0); HEMOGLOBIN 12.2 g/dL (10.0-15.0); IMMATURE GRANULOCYTE % 0.3 %; LYMPHOCYTE # 2.6 K/uL (0.8-4.0); LYMPHOCYTE % 34.2 %; MCH 30.9 pg (27.0-34.0); MCHC 31.8 gm/dL (32.0-36.5); MCV 97.2 fl (83.0-98.0); MONOCYTE # 0.6 K/uL (0.0-1.0); MONOCYTE % 7.9 %; MPV 9.9 fl (9.4-12.4); NEUTROPHIL # (ANC) 4.2 K/uL (1.8-7.8); NEUTROPHIL % 55.5 %; NRBC % 0 /100WBC (0-0.00); PLATELET COUNT 274 K/uL (150-450); RBC 3.95 M/uL (3.00-5.00); RDW-CV 12.7 % (11.9-14.6); WBC 7.6 K/uL (4.0-11.0)
[2016-08-02 04:39] LABS: ANION GAP 9.9 (10.0-19.0); CALCIUM 8.4 mg/dL (8.5-10.5); MAGNESIUM 2.1 mg/dL (1.8-2.6); POTASSIUM 3.9 mMol/L (3.7-5.1)
[2016-08-03] MEDS ORDERED: HYDROCORT 1% OI30 GM (17:39)
[2016-08-03] MEDS ORDERED: PRINIVIL (ZESTR20 MG PO (17:40)
[2016-08-03] MEDS ORDERED: NEOSPORIN1 PKT (17:42)
== END 2016-08-03 18:25 | disposition disaster alternative care site (69) | DRG 308 ==
LOC: GMED 14:30 → GPCU 15:57
PROVIDERS: Family Medicine; Hospitalist; Nurse Practitioner Acute Care; ADMIT Internal Medicine
PROC: 5A2204Z Restoration of Cardiac Rhythm, Single (ICD-10-PCS; principal; 2016-08-01)
PROC: 3E0F7GC Introduction of Other Therapeutic Substance into Respiratory Tract, Via Natural or Artificial Opening (ICD-10-PCS; principal; 2016-08-01)
DX: I48.0 Paroxysmal atrial fibrillation (principal); J96.01 Acute respiratory failure with hypoxia; I10 Essential (primary) hypertension; E03.9 Hypothyroidism, unspecified; Z79.01 Long term (current) use of anticoagulants; Z86.73 Personal history of transient ischemic attack (TIA), and cerebral infarction without residual deficits; Z95.5 Presence of coronary angioplasty implant and graft; Z87.891 Personal history of nicotine dependence
CPT/HCPCS: J0282; J1940; J7030; J7040; J7060

== ENCOUNTER → 2016-08-14 | Outpatient (CLI) | payer MEDICARE, OTHER ==
[~2016-08-14] MED LIST changes: +HYDROCORT 1% OI30 GM; +NEOSPORIN1 PKT; +PRINIVIL (ZESTR20 MG PO
[2016-08-14 17:22] LABS: ALK PHOS 59 IU/L (33-138); ALT 24 IU/L (12-78); AST 22 IU/L (10-40); TOTAL BILIRUBIN 0.2 mg/dL (0.0-1.5); TOTAL PROTEIN 7.6 g/dL (6.0-8.4)
== END | disposition disaster alternative care site (69) ==
LOC: LCNC 16:53
PROVIDERS: Internal Medicine Interventional Cardiology
DX: R53.83 Other fatigue (principal); Z79.899 Other long term (current) drug therapy